=== PATIENT | female | born 1980 | race Caucasian/White ===

== ENCOUNTER → 2017-11-26 | Outpatient (CLI) | payer BC ==
[~2017-11-26] VITALS: Ht 165.1 cm; Wt 70.5 kg
[~2017-11-26] MED LIST: DIETARY SUPPLEMENT PO
[2017-11-26 13:30] VITALS: BP 124/78
[2017-11-26 13:46] LABS: EOS # 0.1 (0.04-0.40); EOS % 1.5 % (1.0-5.0); HEMATOCRIT 39.5 % (37.0-47.0); LYMPH# 2.1 (1.50-4.00); MEAN CELL VOLUME 101 fl (78-100); MEAN CORPUSCULAR HEMOGLOBIN 33 pg (27-31); MEAN CORPUSCULAR HGB CONC 33 g/dL (33-37); MONO # 0.5 (0.20-0.80); NEU # 6.3 (1.40-6.50); PLATELET COUNT 352 K/mm3 (130-400); RED BLOOD COUNT 3.91 M/mm3 (4.10-5.30); RED CELL DISTRIBUTION WIDTH 12.6 % (11.5-14.5); WHITE BLOOD COUNT 9.1 K/mm3 (4.8-10.8)
[2017-11-26 14:07] LABS: ALBUMIN 4.2 g/dL (3.5-5.0); BUN/CREATININE RATIO 18.3 (6.0-26.0); CALCIUM 9.2 mg/dL (8.4-10.2); POTASSIUM 3.7 mmol/L (3.6-5.0); TOTAL BILIRUBIN 0.7 mg/dL (0.2-1.3); TOTAL PROTEIN 7.6 g/dL (6.3-8.2)
== END ==
LOC: AMSURD 13:07
PROVIDERS: Nurse Practitioner Family
DX: R07.89 Other chest pain (principal); R42 Dizziness and giddiness

== ENCOUNTER → 2019-05-03 | Outpatient (CLI) | payer BC ==
[2017-11-26 13:30] VITALS: BP 124/78
[2019-05-03 10:11] LABS: BASO # 0.1 (0.02-0.10); EOS # 0.1 (0.04-0.40); HEMATOCRIT 41.7 % (37.0-47.0); HEMOGLOBIN 13.7 g/dL (12.5-16.0); LYMPH# 1.8 (1.50-4.00); MEAN CELL VOLUME 103 fl (78-100); MEAN CORPUSCULAR HEMOGLOBIN 34 pg (27-31); MEAN CORPUSCULAR HGB CONC 33 g/dL (33-37); MEAN PLATELET VOLUME 8.9 fl (7.4-10.4); MONO # 0.8 (0.20-0.80); NEU # 5.3 (1.40-6.50); PLATELET COUNT 363 K/mm3 (130-400); RED BLOOD COUNT 4.05 M/mm3 (4.10-5.30); RED CELL DISTRIBUTION WIDTH 12.9 % (11.5-14.5)
[2019-05-03 10:12] LABS: POTASSIUM 3.8 mmol/L (3.5-5.1)
[2019-05-03 10:13] LABS: ALBUMIN 4.7 g/dL (3.5-5.0)
[2019-05-03 10:14] LABS: CALCIUM 9.9 mg/dL (8.3-10.5)
[2019-05-03 10:15] LABS: TOTAL PROTEIN 7.5 g/dL (6.4-8.3)
== END ==
LOC: LAB 09:53
PROVIDERS: Family Medicine
DX: Z01.419 Encounter for gynecological examination (general) (routine) without abnormal findings (principal); Z13.220 Encounter for screening for lipoid disorders

== ENCOUNTER → 2020-08-07 | Outpatient (CLI) | payer BC ==
[2017-11-26 13:30] VITALS: BP 124/78
[2020-08-07 09:03] LABS: EOS # 0.1 (0.04-0.40); EOS % 1.3 % (1.0-5.0); HEMATOCRIT 38.7 % (37.0-47.0); HEMOGLOBIN 12.3 g/dL (12.5-16.0); LYMPH# 1.6 (1.50-4.00); MEAN CELL VOLUME 102 fl (78-100); MEAN CORPUSCULAR HEMOGLOBIN 32 pg (27-31); MEAN CORPUSCULAR HGB CONC 32 g/dL (33-37); MEAN PLATELET VOLUME 9.1 fl (7.4-10.4); MONO # 0.6 (0.20-0.80); NEU # 4.4 (1.40-6.50); PLATELET COUNT 322 K/mm3 (130-400); WHITE BLOOD COUNT 6.8 K/mm3 (4.8-10.8)
[2020-08-07 09:10] LABS: ALBUMIN 4.5 g/dL (3.5-5.0)
[2020-08-07 09:11] LABS: CALCIUM 9.4 mg/dL (8.3-10.5)
[2020-08-07 09:12] LABS: TOTAL PROTEIN 7.2 g/dL (6.4-8.3)
[2020-08-07 09:14] LABS: TOTAL BILIRUBIN 1.1 mg/dL (0.2-1.2)
[2020-08-07 22:46] LABS: FOLLICLE STIMULATING HORMONE 14.8 mIU/mL (()); LUTENIZING HORMONE 23.8 mIU/mL (()); PROGESTERONE 0.3 ng/mL (())
== END ==
LOC: LAB 08:36
PROVIDERS: Family Medicine
DX: Z00.00 Encounter for general adult medical examination without abnormal findings (principal); E78.5 Hyperlipidemia, unspecified; N92.6 Irregular menstruation, unspecified; R53.83 Other fatigue; D64.9 Anemia, unspecified

== ENCOUNTER → 2021-06-17 | Outpatient (CLI) | payer BC | LOC: LAB 12:39 | DX: Z20.822 Contact with and (suspected) exposure to COVID-19 (principal) ==

== ENCOUNTER → 2021-09-27 | Outpatient (CLI) | payer BC ==
[2021-09-27 10:34] LABS: ALBUMIN 4.3 g/dL (3.5-5.0); POTASSIUM 4.2 mmol/L (3.5-5.1)
[2021-09-27 10:37] LABS: TOTAL PROTEIN 7.2 g/dL (6.4-8.3)
[2021-09-27 10:39] LABS: BASO # 0.05 K/mm3 (0.02-0.10); EOS # 0.21 K/mm3 (0.04-0.40); EOS % 2.4 % (1.0-5.0); HEMATOCRIT 38.2 % (37.0-47.0); HEMOGLOBIN 12.5 g/dL (12.5-16.0); LYMPH# 1.78 K/mm3 (1.50-4.00); MEAN CELL VOLUME 101 fl (78-100); MEAN CORPUSCULAR HEMOGLOBIN 33 pg (27-31); MEAN CORPUSCULAR HGB CONC 33 g/dL (33-37); MONO # 0.65 K/mm3 (0.20-0.80); NEU # 6.04 K/mm3 (1.40-6.50); PLATELET COUNT 365 K/mm3 (130-400); RED BLOOD COUNT 3.79 M/mm3 (4.10-5.30); TOTAL BILIRUBIN 0.5 mg/dL (0.2-1.2); WHITE BLOOD COUNT 8.8 K/mm3 (4.8-10.8)
== END ==
LOC: LAB 09:52
PROVIDERS: Family Medicine
DX: Z00.00 Encounter for general adult medical examination without abnormal findings (principal); E78.5 Hyperlipidemia, unspecified; F41.1 Generalized anxiety disorder

== ENCOUNTER → 2023-09-01 | Outpatient (CLI) | payer BC | LOC: MAMMO 08:59 | DX: Z12.31 Encounter for screening mammogram for malignant neoplasm of breast (principal); N63.10 Unspecified lump in the right breast, unspecified quadrant; N63.20 Unspecified lump in the left breast, unspecified quadrant ==

== ENCOUNTER → 2023-09-07 | Outpatient (CLI) | payer BC | LOC: RAD 07:00 | DX: N60.02 Solitary cyst of left breast (principal) ==

== ENCOUNTER → 2023-10-27 | Outpatient (CLI) | payer BC ==
[2023-10-27 23:50] LABS: FOLLICLE STIMULATING HORMONE 79.7 mIU/mL (()); LUTENIZING HORMONE 40.1 mIU/mL (()); PROGESTERONE 0.2 ng/mL (())
== END ==
LOC: LAB 08:36
PROVIDERS: Family Medicine
DX: E78.5 Hyperlipidemia, unspecified (principal); N92.1 Excessive and frequent menstruation with irregular cycle

== ENCOUNTER → 2024-03-22 | Outpatient (CLI) | payer BC | LOC: RAD 06:55 | DX: N60.02 Solitary cyst of left breast (principal) ==

== ENCOUNTER → 2024-06-27 | Outpatient (CLI) | payer BC | LOC: LAB 12:35 | DX: J02.9 Acute pharyngitis, unspecified (principal) ==